=== PATIENT | male | born 1940 | race Caucasian/White ===

== ENCOUNTER 2018-03-08 08:45 | Inpatient (IN) ==
--- NOTE | 2018-03-08 09:04 | DR.N/VMALE ---
HPI Time Seen Time Seen by Provider: 03/08/18 09:04 PMH PMH Past Medical History: Coronary Artery Disease and Hypertension Past Medical History Comment: Chronic Low back pain Past Surgical History Comment: Left carotid endarterectomy Family History History of Family Medical Conditions: No Social History Does patient currently use any type of tobacco product: Yes Type of Tobacco Use: Cigarettes Alcohol Use: None Do you use any recreational Drugs:: No Lives With: Family Lives Where: Home infectious screening In the last 2 months have you had wt loss of >10#?: NO Have you had fever, night sweats or hemotysis?: No Have you traveled outside the country in the last 6 months?: No Isolation: Standard ROS Review of Systems Constitutional: No Symptoms Reported Eyes: No Symptoms Reported ENTM: No Symptoms Reported Respiratoy: No Symptoms Reported Cardiovascular: No Symptoms Reported Gastrointestinal/Abdominal: No Symptoms Reported Genitourinary: No Symptoms Reported Neurological: No Symptoms Reported Musculoskeletal: No Symptoms Reported Integumentary: No Symptoms Reported Hematologic/Lymphatic: No Symptoms Reported Endocrine: No Symptoms Reported Psychiatric: No Symptoms Reported All Other Systems: Reviewed and Negative PE Vital Signs Vitals: Temperature 97.9 F Pulse Rate [Right Brachial] 71 Pulse Rate 59 Respiratory Rate 20 Blood Pressure [Right Arm] 140/63 Blood Pressure 156/68 O2 Sat by Pulse Oximetry 98 General Limitations: No Limitations General Appearance: Alert and In No Apparent Distress Head Head Exam: Normal Inspection Eyes Eye exam: Normal Appearance ENT ENT Exam: Normal Exam Neck Neck Exam: Normal Inspection Chest Chest Inspection: Normal Inspection Respiratory Respiratory Exam: Normal Lung Sounds Bilat Respiratory Exam: Bilateral: Clear to Auscultation Cardiovascular Cardiovascular Exam: Regular Rate and Normal Rhythm Abdominal Exam Abdominal Exam: Normal Inspection, Normal Bowel Sounds and Soft Rectal Rectal Exam: Deferred Exam: Male: Deferred Extremities Extremities Exam: Normal Inspection Back Back Exam: Normal Inspection Neurologic Neurological Exam: Alert and Oriented X3 Psychiatric Psychiatric Exam: Normal Affect and Normal Mood Skin Skin Exam: Warm, Dry, Intact and Normal Color MDM Differential Diagnosis Differential Diagnosis: Considerations may Include:: Other Differential Diagnosis Comment: Primary bladder neoplasm is suspected COURSE Treatment Treatment: Admit to hospital for evaluation and further treatment Education/Counseling Education/Counseling: Patient and Family Educated On: Treatment ROR Labs Reviewed Laboratory Results Reviewed?: Yes Result Diagrams: 03/11/18 04:30 03/11/18 04:30 Laboratory: 03/08/18 14:56 Urine,Clean Catch Urine Culture - Final WBC 6.9 X10^3/uL (3.6-10.0) 03/11/18 04:30 RBC 3.36 X10^6/uL (4.7-6.0) L 03/11/18 04:30 Hgb 9.5 g/dL (13.5-18.0) L 03/11/18 04:30 Hct 27.4 % (42.0-54.0) L 03/11/18 04:30 MCV 81.5 fL (80.0-100.0) 03/11/18 04:30 MCH 28.2 pg (27.0-34.0) 03/11/18 04:30 MCHC 34.5 g/dL (33.0-35.0) 03/11/18 04:30 RDW 15.1 % (11.6-16.5) 03/11/18 04:30 Plt Count 226 X10^3/uL (150.0-450.0) 03/11/18 04:30 Plt Count Comment Adequate (ADEQUATE) 03/09/18 03:19 MPV 9.0 fL (7.4-11.0) 03/11/18 04:30 Neut % (Auto) 54.3 % (42.0-75.0) 03/11/18 04:30 Lymph % (Auto) 28.1 % (21.0-51.0) 03/11/18 04:30 [place] % (Auto) 9.6 % (0.0-13.0) 03/11/18 04:30 Eos % (Auto) 7.2 % (0.9-2.9) H 03/11/18 04:30 Baso % (Auto) 0.8 % (0.2-1.0) 03/11/18 04:30 Neut # (Auto) 3.8 x10^3/uL (2.2-4.8) 03/11/18 04:30 Lymph # (Auto) 1.9 X10^3/uL (1.3-2.9) 03/11/18 04:30 [place] # (Auto) 0.7 x10^3/uL (0.3-0.8) 03/11/18 04:30 Eos # (Auto) 0.5 x10^3/uL (0.0-0.2) H 03/11/18 04:30 Baso # (Auto) 0.1 X10^3/uL (0.0-0.1) 03/11/18 04:30 Absolute Nucleated RBC 0.0 /100WBC 03/11/18 04:30 Plt Morphology Comment Normal (NORMAL) 03/09/18 03:19 RBC Morphology Normal (NORMAL) 03/09/18 03:19 INR Target Range - 03/08/18 09:22 INR 0.99 (0.8-1.3) 03/08/18 09:22 APTT 34.8 SECONDS (22.9-36.5) 03/08/18 09:22 PTT Comment - 03/08/18 09:22 Sodium 143 mmol/L (136-145) 03/11/18 04:30 Corrected Sodium TNP 03/11/18 04:30 Potassium 3.8 mmol/L (3.5-5.1) 03/11/18 04:30 Chloride 108 mmol/L (98-107) H 03/11/18 04:30 Carbon Dioxide 28.7 mmol/L (21-32) 03/11/18 04:30 BUN 25 mg/dL (7-18) H 03/11/18 04:30 Creatinine 1.91 mg/dL (0.70-1.30) H 03/11/18 04:30 Est GFR (MDRD) Af Amer 44 (>60) L 03/11/18 04:30 Est GFR (MDRD) Non-Af 36 (>60) L 03/11/18 04:30 Glucose 94 mg/dL (65-99) 03/11/18 04:30 Calcium 8.1 mg/dL (8.5-10.1) L 03/11/18 04:30 Corrected Calcium 9.2 mg/dL (8.5-10.1) 03/11/18 04:30 Magnesium 1.9 mg/dL (1.7-2.9) 03/08/18 09:22 Iron 22 ug/dL (50-175) L 03/08/18 09:22 Transferrin 443 mg/dL (202-364) H 03/08/18 09:22 Ferritin 20 ng/mL (26-388) L 03/08/18 09:22 Total Bilirubin 0.40 mg/dL (0.2-1.0) 03/11/18 04:30 AST 34 Units/L (15-37) 03/11/18 04:30 ALT 23 Units/L (12-78) 03/11/18 04:30 Alkaline Phosphatase 34 Units/L (46-116) L 03/11/18 04:30 Creatine Kinase 42 Units/L (39-308) 03/08/18 09:22 CK-MB (CK-2) < 1.0 ng/mL (0-4.0) 03/08/18 09:22 CK/CKMB % Calc 2.4 % (<4) 03/08/18 09:22 Troponin I < 0.02 ng/mL (0-1.5) 03/08/18 09:22 Total Protein 5.8 g/dL (6.4-8.2) L 03/11/18 04:30 Albumin 2.6 g/dL (3.4-5.0) L 03/11/18 04:30 Globulin 3.2 g/dL (2.5-4.5) 03/11/18 04:30 Albumin/Globulin Ratio 0.8 Ratio (1.1-2.1) L 03/11/18 04:30 Triglycerides 94 mg/dL (0-150) 03/09/18 03:19 Cholesterol 129 mg/dL (0-200) 03/09/18 03:19 LDL Cholesterol, Calc 75 mg/dL (0-100) 03/09/18 03:19 HDL Cholesterol 35 mg/dL (40-60) L 03/09/18 03:19 Cholesterol/HDL Ratio 3.7 (0.0-5.0) 03/09/18 03:19 Amylase 62 Units/L (25-115) 03/08/18 09:22 Lipase 143 Units/L (73-393) 03/08/18 09:22 Vitamin B12 592 pg/mL (193-986) 03/08/18 09:22 Folate 13.5 ng/mL (>8.6) 03/08/18 09:22 Specimen Type Clean catch urine 03/08/18 14:56 Urine Color Yellow (YELLOW) 03/08/18 14:56 Urine Appearance Slightly hazy (CLEAR) 03/08/18 14:56 Urine pH 6.0 (5.0 - 8.0) 03/08/18 14:56 Ur Specific [place] 1.015 (1.000-1.030) 03/08/18 14:56 Urine Protein 3+ (NEGATIVE) 03/08/18 14:56 Urine Glucose (UA) Negative (NEGATIVE) 03/08/18 14:56 Urine Ketones Negative (NEGATIVE) 03/08/18 14:56 Urine Occult Blood 2+ (NEGATIVE) 03/08/18 14:56 Urine Nitrite Negative (NEGATIVE) 03/08/18 14:56 Urine Bilirubin Negative (NEGATIVE) 03/08/18 14:56 Urine Urobilinogen 1+ (NORMAL) 03/08/18 14:56 Ur Leukocyte Esterase 1+ (NEGATIVE) 03/08/18 14:56 Urine RBC 10-20 /HPF (NONE SEEN) 03/08/18 14:56 Urine WBC 10-20 /HPF (NONE SEEN) 03/08/18 14:56 Ur Squamous Epith Cells Few /HPF (NEGATIVE) 03/08/18 14:56 Urine Bacteria Trace /HPF (NEGATIVE) 03/08/18 14:56 Fine Granular Casts Rare /LPF (NEGATIVE) 03/08/18 14:56 Urine Mucus Rare /HPF (NEGATIVE) 03/08/18 14:56 Ur Culture Indicated? Yes/culture set up 03/08/18 14:56 Blood Type A POSITIVE 03/09/18 11:27 Antibody Screen Negative 03/09/18 11:27 Crossmatch See Detail 03/09/18 11:27 XRAY XRAY Interpreted by: Radiologist XRAY Findings: Spoke with patient and family about findings EKG Rate: 55 [place]: Normal Rhythm: NSR Instructions Instructions: Steps to Quit Smoking, [id number] Anemia Hypertension, [id number] Heart Failure, [id number] Fall Prevention in Hospitals, Adult Forms: Patient Portal ADDITIONAL NOTES Additional Notes Additional Notes: Spoke with Dr. Reed will admit patient and repeat labs in AM
[2018-03-08 09:05] VITALS: BMI 26.8
[2018-03-08 09:39] LABS: BASOPHILS # (AUTO) 0.1 X10^3/uL (0.0-0.1); BASOPHILS % (AUTO) 0.8 % (0.2-1.0); EOSINOPHILS # (AUTO) 0.4 x10^3/uL (0.0-0.2); EOSINOPHILS % (AUTO) 4.7 % (0.9-2.9); HEMATOCRIT 24.4 % (42.0-54.0); HEMOGLOBIN 8.1 g/dL (13.5-18.0); LYMPHOCYTES # (AUTO) 1.3 X10^3/uL (1.3-2.9); MEAN CORPUSCULAR HEMOGLOBIN 27.4 pg (27.0-34.0); MEAN CORPUSCULAR VOLUME 83.2 fL (80.0-100.0); MEAN PLATELET VOLUME 8.8 fL (7.4-11.0); MONOCYTES # (AUTO) 0.5 x10^3/uL (0.3-0.8); MONOCYTES % (AUTO) 6.3 % (0.0-13.0); NEUTROPHILS # (AUTO) 6.3 x10^3/uL (2.2-4.8); NEUTROPHILS % (AUTO) 73.2 % (42.0-75.0); PLATELET COUNT 247 X10^3/uL (150.0-450.0); RED BLOOD COUNT 2.93 X10^6/uL (4.7-6.0); RED CELL DISTRIBUTION WIDTH 14.2 % (11.6-16.5); WHITE BLOOD COUNT 8.6 X10^3/uL (3.6-10.0)
[2018-03-08 09:49] LABS: BLOOD UREA NITROGEN 30 mg/dL (7-18); CALCIUM 8.5 mg/dL (8.5-10.1); CARBON DIOXIDE 26.2 mmol/L (21-32); CHLORIDE 105 mmol/L (98-107); COR NA(FOR HYPERGLY) 142 mmol/L (136-145); CREATININE 2.04 mg/dL (0.70-1.30); SODIUM 141 mmol/L (136-145); TROPONIN I < 0.02 ng/mL (0-1.5); eGFR NON BLACK RACES 34 (>60)
[2018-03-08 09:53] LABS: ALANINE AMINOTRANSFERASE 26 Units/L (12-78); ALKALINE PHOSPHATASE 37 Units/L (46-116); AMYLASE 62 Units/L (25-115); ASPARTATE AMINO TRANSFERASE 39 Units/L (15-37); CKMB % 2.4 % (<4); COR CA(FOR HYPOALB) 9.3 mg/dL (8.5-10.1); CREATINE KINASE 42 Units/L (39-308); CREATINE KINASE MB < 1.0 ng/mL (0-4.0); LIPASE 143 Units/L (73-393); MAGNESIUM 1.9 mg/dL (1.7-2.9); TOTAL PROTEIN 6.6 g/dL (6.4-8.2)
--- NOTE | 2018-03-08 11:06 | RAD ---
Single portable view of the chest Indication: Chest pain with weakness Comparison: None Findings/conclusion: Heart size and pulmonary vasculature within normal limits. The lungs are clear. Reported By:
--- NOTE | 2018-03-08 11:19 | CT ---
HISTORY: Nausea, vomiting, anemia Study: CT abdomen pelvis without contrast Comparison: None Technique: Axial noncontrast images with coronal and sagittal reformats. Dose reduction procedures we re used with mA/kv adjusted for body size. The examination is limited due to the lack of intravenous and oral contrast. The examination was performed in this manner at the sole discretion of the orderin g caregiver and without input requested from or given by Radiology Findings: The lung bases are clear. There is a small hiatal hernia present. The liver, spleen, adrenal glands, and pancreas are within normal limits to the limitations of an unenhanced examination. The kidneys ar e unobstructed and without stones. Renal vascular calcifications are present. No ureteral calculi are identified. The appendix is normal. There is diffuse severe calcific atherosclerotic change througho ut the abdominal aorta and iliac vessels with a stent present in the right common iliac artery. There is fusiform dilatation of the infrarenal abdominal aorta extending over a distance of 8.4 cm and dem onstrating a maximum AP diameter of 3.3 cm and a maximum transverse diameter 3.2 cm. 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 Exte nsive calcific atherosclerotic change is present at the origins of celiac axis, SMA, and both renal a rteries. Stenoses cannot be excluded. There are no findings suggestive of diverticulitis or colitis. Examination of the pelvis demonstrated no evidence for pelvic masses, pelvic fluid, or pelvic lymphad enopathy. There is a 2.9 by 2.5 cm mass involving the lateral wall of the bladder on the left. Primar y bladder neoplasm is suspected and cystoscopy is recommended. No lytic or blastic skeletal lesions a re identified. IMPRESSION: 2.9 x 2.5 cm mass involving the left lateral wall of the bladder. Primary bladder neoplasm is suspect ed and cystoscopy is recommended. Small hiatal hernia Extensive calcific atherosclerotic change in the abdominal aorta, iliac vessels, and origins of the c eliac axis, SMA, and renal arteries as described. Mild fusiform dilatation of the infrarenal abdominal aorta maximum diameter 3.2 cm Reported By:
[2018-03-08 15:09] LABS: BILIRUBIN,URINE NEGATIVE (NEGATIVE); BLOOD/HEMOGLOBIN,URINE 2+ (NEGATIVE); GLUCOSE, URINE NEGATIVE (NEGATIVE); KETONES,URINE NEGATIVE (NEGATIVE); LEUKOCYTE ESTERASE ,URINE 1+ (NEGATIVE); NITRITES,URINE NEGATIVE (NEGATIVE); PROTEIN,URINE 3+ (NEGATIVE); UROBILINOGEN,URINE 1+ (NORMAL)
[2018-03-08] MEDS: NS 1000 ML 1,000 ML IV SCH (15:17)
[2018-03-08 15:18] LABS: APPEARANCE,URINE SLIGHTLY HAZY (CLEAR); BACTERIA,URINE TRACE /HPF (NEGATIVE); COLOR,URINE YELLOW (YELLOW); FINE GRANULAR CASTS,URINE RARE /LPF (NEGATIVE); SQUAMOUS EPITHELIAL CELL,UR FEW /HPF (NEGATIVE)
[2018-03-08 15:19] LABS: HEMATOCRIT 24.6 % (42.0-54.0); HEMOGLOBIN 8.1 g/dL (13.5-18.0)
[2018-03-08 15:19] LABS: MUCUS,URINE RARE /HPF (NEGATIVE)
[2018-03-08] MEDS ORDERED: PREVNAR 13 IM ONE ×2 (17:13→19:15)
[2018-03-08] MEDS ORDERED: FLUVIRIN IM ONE ×2 (17:13→19:15)
[2018-03-08 19:22] LABS: HEMATOCRIT 22.6 % (42.0-54.0); HEMOGLOBIN 7.4 g/dL (13.5-18.0)
[2018-03-08] MEDS: SINGULAIR TAB 10 MG PO SCH (20:35)
[2018-03-08] MEDS: ZOCOR TAB 40 MG PO SCH (20:35)
[2018-03-08] MEDS: NEURONTIN CAP 300 MG PO SCH (21:02)
[2018-03-08] MEDS ORDERED: ZOFRAN INJ 4 MG VIAL IVP PRN (21:34)
[2018-03-08 23:24] LABS: HEMATOCRIT 22.4 % (42.0-54.0); HEMOGLOBIN 7.3 g/dL (13.5-18.0)
[2018-03-09] MEDS: NS 1000 ML 1,000 ML IV SCH ×2 (02:06→04:11)
[2018-03-09 03:38] LABS: BASOPHILS # (AUTO) 0.1 X10^3/uL (0.0-0.1); BASOPHILS % (AUTO) 1.2 % (0.2-1.0); EOSINOPHILS # (AUTO) 0.4 x10^3/uL (0.0-0.2); EOSINOPHILS % (AUTO) 6.1 % (0.9-2.9); HEMATOCRIT 22.5 % (42.0-54.0); HEMOGLOBIN 7.4 g/dL (13.5-18.0); LYMPHOCYTES # (AUTO) 1.7 X10^3/uL (1.3-2.9); LYMPHOCYTES % (AUTO) 25.4 % (21.0-51.0); MEAN CORPUSCULAR HEMOGLOBIN 27.4 pg (27.0-34.0); MEAN CORPUSCULAR HGB CONC 32.9 g/dL (33.0-35.0); MEAN CORPUSCULAR VOLUME 83.3 fL (80.0-100.0); MONOCYTES # (AUTO) 0.5 x10^3/uL (0.3-0.8); MONOCYTES % (AUTO) 7.8 % (0.0-13.0); NEUTROPHILS % (AUTO) 59.5 % (42.0-75.0); PLATELET COUNT 242 X10^3/uL (150.0-450.0); RED BLOOD COUNT 2.71 X10^6/uL (4.7-6.0); WHITE BLOOD COUNT 6.7 X10^3/uL (3.6-10.0)
[2018-03-09 03:47] LABS: ALANINE AMINOTRANSFERASE 25 Units/L (12-78); ALBUMIN 2.7 g/dL (3.4-5.0); ALKALINE PHOSPHATASE 34 Units/L (46-116); ASPARTATE AMINO TRANSFERASE 34 Units/L (15-37); BLOOD UREA NITROGEN 27 mg/dL (7-18); CALCIUM 8.2 mg/dL (8.5-10.1); CARBON DIOXIDE 27.3 mmol/L (21-32); CHLORIDE 109 mmol/L (98-107); CHOL/HDL RATIO 3.7 (0.0-5.0); CHOLESTEROL 129 mg/dL (0-200); COR CA(FOR HYPOALB) 9.2 mg/dL (8.5-10.1); CREATININE 1.91 mg/dL (0.70-1.30); HDL CHOLESTEROL 35 mg/dL (40-60); SODIUM 144 mmol/L (136-145); TRIGLYCERIDES 94 mg/dL (0-150); eGFR NON BLACK RACES 36 (>60)
[2018-03-09 04:09] LABS: PLATELET MORPHOLOGY COMMENT NORMAL (NORMAL)
[2018-03-09] MEDS: NEURONTIN CAP 300 MG PO SCH ×3 (05:23→21:26)
[2018-03-09 06:40] LABS: HEMOGLOBIN 7.6 g/dL (13.5-18.0)
[2018-03-09] MEDS ORDERED: OMEGA DHA EPA FISH OIL PO SCH (09:00)
[2018-03-09] MEDS ORDERED: PHARMACY CONSULT - DOSE _____ XX SCH (10:00)
[2018-03-09] MEDS: LASIX PO SCH (10:06)
[2018-03-09] MEDS: NexIUM PO SCH (10:06)
[2018-03-09] MEDS: CARDURA PO SCH (10:06)
[2018-03-09] MEDS: TRICOR TAB 145 MG PO SCH (10:06)
[2018-03-09] MEDS: COZAAR PO SCH (10:06)
[2018-03-09] MEDS: PROSCAR PO SCH (10:07)
[2018-03-09] MEDS: ASPIRIN EC 81 MG PO SCH (10:07)
[2018-03-09] MEDS: SYNTHROID 25 mcg TAB PO SCH (10:08)
[2018-03-09] MEDS: NIASPAN ER TAB 500 MG PO SCH (10:08)
[2018-03-09] MEDS: LOVAZA PO SCH (10:08)
[2018-03-09] MEDS: CORDARONE TAB 200 MG PO SCH (10:12)
[2018-03-09 11:05] LABS: HEMATOCRIT 24.2 % (42.0-54.0)
[2018-03-09] MEDS ORDERED: NS 500 ML IV 500 ML IV ONE ×2 (13:39→22:40)
[2018-03-09] MEDS: MIRALAX POWDER (1 DOSE 17 G) PO SCH (21:26)
[2018-03-09] MEDS: SINGULAIR TAB 10 MG PO SCH (21:26)
[2018-03-09] MEDS: COLACE CAP 100 MG PO SCH (21:26)
[2018-03-09] MEDS: ZOCOR TAB 40 MG PO SCH (21:26)
[2018-03-09] MEDS ORDERED: TYLENOL 325 MG TAB PO PRN (23:28)
[2018-03-10] MEDS: NS 1000 ML 1,000 ML IV SCH ×2 (02:27→20:36)
[2018-03-10] MEDS: NEURONTIN CAP 300 MG PO SCH ×3 (05:09→22:08)
[2018-03-10 06:03] LABS: BASOPHILS # (AUTO) 0.1 X10^3/uL (0.0-0.1); BASOPHILS % (AUTO) 1.1 % (0.2-1.0); EOSINOPHILS # (AUTO) 0.5 x10^3/uL (0.0-0.2); EOSINOPHILS % (AUTO) 7.2 % (0.9-2.9); HEMATOCRIT 29.3 % (42.0-54.0); HEMOGLOBIN 9.8 g/dL (13.5-18.0); LYMPHOCYTES # (AUTO) 2.1 X10^3/uL (1.3-2.9); LYMPHOCYTES % (AUTO) 27.9 % (21.0-51.0); MEAN CORPUSCULAR HEMOGLOBIN 27.5 pg (27.0-34.0); MEAN CORPUSCULAR HGB CONC 33.6 g/dL (33.0-35.0); MEAN CORPUSCULAR VOLUME 81.8 fL (80.0-100.0); MONOCYTES # (AUTO) 0.8 x10^3/uL (0.3-0.8); MONOCYTES % (AUTO) 9.8 % (0.0-13.0); NEUTROPHILS # (AUTO) 4.1 x10^3/uL (2.2-4.8); PLATELET COUNT 231 X10^3/uL (150.0-450.0); RED BLOOD COUNT 3.58 X10^6/uL (4.7-6.0); RED CELL DISTRIBUTION WIDTH 15.2 % (11.6-16.5); WHITE BLOOD COUNT 7.7 X10^3/uL (3.6-10.0)
[2018-03-10 06:22] LABS: ALANINE AMINOTRANSFERASE 25 Units/L (12-78); ALBUMIN 2.7 g/dL (3.4-5.0); ALKALINE PHOSPHATASE 36 Units/L (46-116); ASPARTATE AMINO TRANSFERASE 36 Units/L (15-37); BLOOD UREA NITROGEN 24 mg/dL (7-18); CALCIUM 8.5 mg/dL (8.5-10.1); CARBON DIOXIDE 28.3 mmol/L (21-32); CHLORIDE 105 mmol/L (98-107); COR CA(FOR HYPOALB) 9.5 mg/dL (8.5-10.1); CREATININE 1.81 mg/dL (0.70-1.30); SODIUM 140 mmol/L (136-145); eGFR NON BLACK RACES 39 (>60)
[2018-03-10] MEDS: NS 100 ML IV 100 ML with VENOFER 400 MG IV SCH ×2 (09:30)
[2018-03-10] MEDS: ASPIRIN EC 81 MG PO SCH (09:49)
[2018-03-10] MEDS: CARDURA PO SCH (09:49)
[2018-03-10] MEDS: NexIUM PO SCH (09:50)
[2018-03-10] MEDS: LOVAZA PO SCH (09:50)
[2018-03-10] MEDS: CORDARONE TAB 200 MG PO SCH (09:50)
[2018-03-10] MEDS: NIASPAN ER TAB 500 MG PO SCH (09:50)
[2018-03-10] MEDS: LASIX PO SCH (09:50)
[2018-03-10] MEDS: COZAAR PO SCH (09:50)
[2018-03-10] MEDS ORDERED: TYLENOL #3 TAB (W/CODEINE) PO PRN (09:51)
[2018-03-10] MEDS: PROSCAR PO SCH (09:51)
[2018-03-10] MEDS: SYNTHROID 25 mcg TAB PO SCH (09:51)
[2018-03-10] MEDS: TRICOR TAB 145 MG PO SCH (09:51)
[2018-03-10] MEDS ORDERED: VERAPAMIL 240 MG PO SCH (10:15)
[2018-03-10] MEDS: NICOTINE PATCH TD SCH (16:30)
[2018-03-10] MEDS: SINGULAIR TAB 10 MG PO SCH (20:37)
[2018-03-10] MEDS: COLACE CAP 100 MG PO SCH (20:37)
[2018-03-10] MEDS: MIRALAX POWDER (1 DOSE 17 G) PO SCH (20:40)
[2018-03-11] MEDS: NS 1000 ML 1,000 ML IV SCH ×3 (04:55→10:00)
[2018-03-11] MEDS: NEURONTIN CAP 300 MG PO SCH (05:00)
[2018-03-11 05:32] LABS: BASOPHILS # (AUTO) 0.1 X10^3/uL (0.0-0.1); BASOPHILS % (AUTO) 0.8 % (0.2-1.0); EOSINOPHILS # (AUTO) 0.5 x10^3/uL (0.0-0.2); EOSINOPHILS % (AUTO) 7.2 % (0.9-2.9); HEMATOCRIT 27.4 % (42.0-54.0); HEMOGLOBIN 9.5 g/dL (13.5-18.0); LYMPHOCYTES # (AUTO) 1.9 X10^3/uL (1.3-2.9); LYMPHOCYTES % (AUTO) 28.1 % (21.0-51.0); MEAN CORPUSCULAR HEMOGLOBIN 28.2 pg (27.0-34.0); MEAN CORPUSCULAR HGB CONC 34.5 g/dL (33.0-35.0); MEAN CORPUSCULAR VOLUME 81.5 fL (80.0-100.0); MONOCYTES # (AUTO) 0.7 x10^3/uL (0.3-0.8); MONOCYTES % (AUTO) 9.6 % (0.0-13.0); NEUTROPHILS # (AUTO) 3.8 x10^3/uL (2.2-4.8); NEUTROPHILS % (AUTO) 54.3 % (42.0-75.0); PLATELET COUNT 226 X10^3/uL (150.0-450.0); RED BLOOD COUNT 3.36 X10^6/uL (4.7-6.0); RED CELL DISTRIBUTION WIDTH 15.1 % (11.6-16.5); WHITE BLOOD COUNT 6.9 X10^3/uL (3.6-10.0)
[2018-03-11 05:55] LABS: ALANINE AMINOTRANSFERASE 23 Units/L (12-78); ALBUMIN 2.6 g/dL (3.4-5.0); ALKALINE PHOSPHATASE 34 Units/L (46-116); ASPARTATE AMINO TRANSFERASE 34 Units/L (15-37); BLOOD UREA NITROGEN 25 mg/dL (7-18); CALCIUM 8.1 mg/dL (8.5-10.1); CARBON DIOXIDE 28.7 mmol/L (21-32); CHLORIDE 108 mmol/L (98-107); COR CA(FOR HYPOALB) 9.2 mg/dL (8.5-10.1); CREATININE 1.91 mg/dL (0.70-1.30); SODIUM 143 mmol/L (136-145); TOTAL PROTEIN 5.8 g/dL (6.4-8.2); eGFR NON BLACK RACES 36 (>60)
[2018-03-11] MEDS: NexIUM PO SCH (09:09)
[2018-03-11] MEDS: SYNTHROID 25 mcg TAB PO SCH (09:10)
[2018-03-11] MEDS: TRICOR TAB 145 MG PO SCH (09:10)
[2018-03-11] MEDS: NIASPAN ER TAB 500 MG PO SCH (09:10)
[2018-03-11] MEDS: COZAAR PO SCH (09:11)
[2018-03-11] MEDS: PROSCAR PO SCH (09:11)
[2018-03-11] MEDS: CARDURA PO SCH (09:11)
[2018-03-11] MEDS: ASPIRIN EC 81 MG PO SCH (09:11)
[2018-03-11] MEDS: LOVAZA PO SCH (09:16)
[2018-03-11] MEDS: LASIX PO SCH (09:16)
[2018-03-11] MEDS: NICOTINE PATCH TD SCH (09:16)
[2018-03-11] MEDS: CORDARONE TAB 200 MG PO SCH (09:24)
[2018-03-11] MEDS: NS 100 ML IV 100 ML with VENOFER 400 MG IV SCH ×2 (09:59)
[2018-03-11] MEDS: CALAN SR 240 MG PO SCH ×2 (10:00→13:53)
[2018-03-11 12:05] VITALS: BP 140/63
== END 2018-03-11 02:05 | disposition home health service (06) | DRG 392 ==
LOC: ER 08:57 → MED/SURG 13:56
PROVIDERS: ADMIT Internal Medicine; ATTEND Obstetrics & Gynecology Obstetrics
DX: Z23 Encounter for immunization; M54.5 Low back pain; I10 Essential (primary) hypertension; R26.89 Other abnormalities of gait and mobility; E86.0 Dehydration; R11.2 Nausea with vomiting, unspecified; R94.31 Abnormal electrocardiogram [ECG] [EKG]; D50.8 Other iron deficiency anemias; C67.9 Malignant neoplasm of bladder, unspecified; N18.9 Chronic kidney disease, unspecified; I25.10 Atherosclerotic heart disease of native coronary artery without angina pectoris; R53.81 Other malaise
CPT/HCPCS: 36415; 36430; 71010; 71045; 74176; 80053; 80061; 81001; 82150; 82550; 82553; 82607; 82728; 82746; 83540; 83690; 83735; 84466; 84484; 85014; 85018; 85025; 85610; 85730; 86850; 86900; 86901; 86922; 87086; 90686; 93005; 93010; 94760; 96365; 97116; 97162; 97165; 97530; 99283; 99284; A4222; P9016; S0138; 90670; J1756; J2405; J3490; J7030; J7040; J7050